=== PATIENT | female | born 1950 | race Two or more races ===

== ENCOUNTER 2022-05-05 12:28 | Emergency (ER) | payer MEDICARE ==
[~2022-05-05] VITALS: Ht 157.5 cm; Wt 79.1 kg
[2022-05-05 12:43] VITALS: BP 156/72
== END 2022-05-05 16:47 | disposition home or self-care (01) ==
LOC: ER 12:29
DX: S91.001A Unspecified open wound, right ankle, initial encounter (principal); Z88.5 Allergy status to narcotic agent; Z88.8 Allergy status to other drugs, medicaments and biological substances; X58.XXXA Exposure to other specified factors, initial encounter; Y93.89 Activity, other specified; Y92.89 Other specified places as the place of occurrence of the external cause; Y99.8 Other external cause status
CPT/HCPCS: 73610; 99283

== ENCOUNTER 2022-05-14 10:18 | Emergency (ER) | payer MEDICARE ==
[~2022-05-14] VITALS: Ht 157.5 cm; Wt 79.4 kg
[2022-05-14 10:45] VITALS: BP 152/65
[2022-05-14] MEDS ORDERED: SULF1TAB49 PO (11:07)
[2022-05-14] MEDS ORDERED: MUPI22OI30 TOP (11:07)
== END 2022-05-14 11:18 | disposition home or self-care (01) ==
LOC: ER 10:19
DX: L98.499 Non-pressure chronic ulcer of skin of other sites with unspecified severity (principal)
CPT/HCPCS: 99283

== ENCOUNTER 2022-06-16 17:56 | Emergency (ER) | payer MEDICARE ==
[~2022-06-16] VITALS: Ht 157.5 cm; Wt 80.0 kg
[2022-06-16 18:33] VITALS: BP 163/66
[2022-06-16] MEDS ORDERED: acetaminophen 325mg tablet PO ONE (19:50)
[2022-06-16] MEDS ORDERED: cephalexin 500mg capsule PO ONE (20:15)
[2022-06-16] MEDS ORDERED: ondansetron 4mg rapidly disintigrating tab PO ONE (20:20)
[2022-06-16] MEDS ORDERED: CEPH500C2 PO (20:24)
[2022-06-16 20:31] LABS: BASOPHILS % (AUTO) 0.2 % (0-1); EOSINOPHILS # (AUTO) 0.1 X10'3 (0-0.9); EOSINOPHILS % (AUTO) 1.3 % (0-6); LYMPHOCYTES % (AUTO) 42.2 % (21-51); MEAN CORPUSCULAR HEMOGLOBIN 29.8 PG (27.0-31.0); MEAN CORPUSCULAR HGB CONC 33.3 g/dL (33.0-36.5); MEAN CORPUSCULAR VOLUME 89.4 FL (78-98); MEAN PLATELET VOLUME 7.3 FL (7.4-10.4); MONOCYTES # (AUTO) 0.6 X10'3 (0-0.9); NEUTROPHILS # (AUTO) 2.1 X10'3 (1.8-7.7); NEUTROPHILS % (AUTO) 44.3 % (42-75); PLATELET COUNT 219 X10'3 (140-440); RED BLOOD COUNT 4.37 X10'6 (4.20-5.60); RED CELL DISTRIBUTION WIDTH 13.9 % (11.5-14.5); WHITE BLOOD COUNT 4.8 X10'3 (4.5-11.0)
[2022-06-16 20:51] LABS: ALANINE AMINOTRANSFERASE 17 U/L (12-78); ALKALINE PHOSPHATASE 80 IU/L (46-116); ANION GAP 9 (8-16); ASPARTATE AMINO TRANSFERASE 22 U/L (10-37); BILIRUBIN,TOTAL 0.3 MG/DL (0.1-1.0); BLOOD UREA NITROGEN 18 MG/DL (7-18); BUN/CREATININE RATIO 16.4 (6.6-38.0); CALCIUM 9.3 MG/DL (8.5-10.1); CHLORIDE 102 MMOL/L (99-107); GLUCOSE 109 MG/DL (70-104); POTASSIUM 4.3 MMOL/L (3.5-5.1); SODIUM 138 MMOL/L (135-145); TOTAL CARBON DIOXIDE 27.2 MMOL/L (24-32); TOTAL PROTEIN 8.1 G/DL (6.4-8.2); eGFR 49 ML/MIN
[2022-06-16 20:56] LABS: CLARITY,URINE CLEAR (Clear); COLOR,URINE YELLOW (Yellow); GLUCOSE, URINE NEGATIVE (Neg); KETONES,URINE NEGATIVE (Neg); LEUKOCYTE ESTERASE ,URINE NEGATIVE (Neg); NITRITES, URINE NEGATIVE (Neg); OCCULT BLOOD,URINE NEGATIVE (Neg); PH,URINE 7.5 (4.8-8.0); PROTEIN,URINE NEGATIVE (Neg); UROBILINOGEN,URINE 0.2 E.U/dL (0.2-1.0)
[2022-06-16 21:01] LABS: UA COLLECTION TYPE CLN CATCH MIDSTREAM
[2022-06-16] MEDS ORDERED: gentamicin 0.1% topical ointment 15gm TP STA (21:56)
[2022-06-17] MEDS ORDERED: gentamicin 0.1% topical ointment 15gm TP SCH (08:00)
== END 2022-06-16 22:10 | disposition home or self-care (01) ==
LOC: ER 17:57
DX: S91.002A Unspecified open wound, left ankle, initial encounter (principal); R11.2 Nausea with vomiting, unspecified; Z88.5 Allergy status to narcotic agent; Z88.8 Allergy status to other drugs, medicaments and biological substances; Z79.2 Long term (current) use of antibiotics; X58.XXXA Exposure to other specified factors, initial encounter; Y93.89 Activity, other specified; Y92.89 Other specified places as the place of occurrence of the external cause; Y99.8 Other external cause status
CPT/HCPCS: 36415; 80053; 81003; 83605; 84145; 85025; 99284

== ENCOUNTER 2022-06-23 17:11 | Emergency (ER) | payer MEDICARE ==
[~2022-06-23] VITALS: Ht 157.5 cm; Wt 78.0 kg
[~2022-06-23 17:11] MED LIST: CEPH500C2 PO
[2022-06-23 18:30] VITALS: BP 158/92
[2022-06-23] MEDS ORDERED: LEVO-65 PO (21:52)
== END 2022-06-23 22:06 | disposition home or self-care (01) ==
LOC: ER 17:12
DX: S91.001A Unspecified open wound, right ankle, initial encounter (principal); Z88.5 Allergy status to narcotic agent; Z88.8 Allergy status to other drugs, medicaments and biological substances; Z79.2 Long term (current) use of antibiotics; X58.XXXA Exposure to other specified factors, initial encounter; Y93.89 Activity, other specified; Y92.89 Other specified places as the place of occurrence of the external cause; Y99.8 Other external cause status
CPT/HCPCS: 99283; A6449

== ENCOUNTER 2022-12-02 17:42 | Emergency (ER) | payer MEDICARE ==
[~2022-12-02] VITALS: Ht 157.5 cm; Wt 79.5 kg
[2022-12-02] MEDS ORDERED: sulfamethoxazole/trimethoprim DS (800/160mg) tablet PO ONE (21:25)
[2022-12-02] MEDS ORDERED: SULF1TAB49 PO (21:26)
[2022-12-02 21:52] VITALS: BP 138/74
== END 2022-12-02 21:57 | disposition home or self-care (01) ==
LOC: ER 17:43
DX: L97.528 Non-pressure chronic ulcer of other part of left foot with other specified severity (principal); L97.519 Non-pressure chronic ulcer of other part of right foot with unspecified severity
CPT/HCPCS: 99283